=== PATIENT | male | born 1995 | race Caucasian/White ===

== ENCOUNTER 2019-03-02 08:20 | Emergency (ER) | payer OTHER ==
[~2019-03-02] VITALS: Ht 175.3 cm; Wt 56.7 kg
[~2019-03-02 08:20] MED LIST: ALBU90OI INH; METPRE4DP PO; Zithromax250 MG PO
[2019-03-02] MEDS ORDERED: Acetaminophen-1 EAC1 PO (08:48)
[2019-03-02] MEDS ORDERED: IBUP800 PO (08:48)
[2019-03-02] MEDS ORDERED: Cleocin HCl300 MG PO (08:48)
[2019-03-02] MEDS ORDERED: FLUOXETINE HCL60 MG PO (08:56)
[2019-03-02] MEDS ORDERED: CLON.1 PO (08:59)
== END 2019-03-02 09:03 | disposition home or self-care (01) ==
LOC: ER 08:20
DX: K04.7 Periapical abscess without sinus (principal); L03.211 Cellulitis of face; Z79.899 Other long term (current) drug therapy; I10 Essential (primary) hypertension; F32.9 Major depressive disorder, single episode, unspecified; F17.210 Nicotine dependence, cigarettes, uncomplicated
CPT/HCPCS: 99283

== ENCOUNTER 2019-10-05 04:40 | Emergency (ER) | payer OTHER ==
[~2019-10-05] VITALS: Ht 175.3 cm; Wt 61.2 kg
[~2019-10-05 04:40] MED LIST changes: +Acetaminophen-1 EAC1 PO; +CLON.1 PO; +Cleocin HCl300 MG PO; +FLUOXETINE HCL60 MG PO; +IBUP800 PO
== END 2019-10-05 05:38 | disposition left against medical advice (07) ==
LOC: ER 04:40
DX: Z53.21 Procedure and treatment not carried out due to patient leaving prior to being seen by health care provider (principal)

== ENCOUNTER 2021-02-25 06:32 | Emergency (ER) | payer OTHER ==
[~2021-02-25] VITALS: Ht 177.8 cm; Wt 63.5 kg
[~2021-02-25 06:32] MED LIST changes: +Veetids 500500 MG PO
[2021-02-25] MEDS ORDERED: CLIN150 PO (06:48)
== END 2021-02-25 06:54 | disposition home or self-care (01) ==
LOC: ER 06:32
DX: K12.2 Cellulitis and abscess of mouth (principal)
CPT/HCPCS: 99282; A9270